=== PATIENT | male | born 1965 | race Caucasian/White ===

== ENCOUNTER 2023-09-10 09:56 | Day surgery (SDC) | payer BC ==
[2023-09-10] MEDS: Lactated Ringers 1,000 ML IV SCH (11:33)
[2023-09-10] MEDS ORDERED: Lidocaine 2% 5 ML SDV ONE (12:32)
[2023-09-10] MEDS ORDERED: Propofol 200 MG/20 ML SDV ONE ×2 (12:32→12:53)
[2023-09-10 14:23] VITALS: BP 123/76; PULSE 72
== END 2023-09-10 13:50 | disposition home or self-care (01) ==
LOC: MW.SDS 09:56
PROVIDERS: ATTEND Surgery
DX: Z12.11 Encounter for screening for malignant neoplasm of colon (principal); K57.30 Diverticulosis of large intestine without perforation or abscess without bleeding; Z87.891 Personal history of nicotine dependence
CPT/HCPCS: 45378; J2704; J7120; J3490